=== PATIENT | male | born 2000 | race Caucasian/White ===

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

== ENCOUNTER 2019-06-02 13:14 | Outpatient (CLI) | payer OTHER ==
[~2019-06-02 13:14] MED LIST: EPINEPHrine 1 MG/ML AMP ONE; Gadobenate Dimeglumine 529 MG/1 ML (20ML VIAL) ONE; Iopamidol 300 61% 50 ML VIAL FS ONE; Lidocaine 1% PF 10 ML AMP ONE
--- NOTE | 2019-06-02 14:54 | RAD ---
Left elbow arthrogram INDICATION: Concern for ulnar collateral ligament injury of the left elbow TECHNIQUE: Informed consent was obtained. Preprocedure appeals examiner images were performed of the left elbow. The patient was placed prone on the fluoroscopic table. Site overlying the lateral aspect of the left elbow joint was prepped and draped in the usual sterile fashion. Buffered 1% lidocaine was a min ister localized tenderness tissues. Under fluoroscopic guidance, a 25-gauge needle was guided down into the radiocapitellar joint. There is administration proximal 3.5 cc of a dilute gadolinium soluti on. The needle was removed. The site was then cleansed and bandage. The patient tolerated the injection without difficulty. FINDINGS: The left elbow appears radiographically normal. No acute osseous abnormality is evident. Total fluoroscopic time was 0.8 minutes. Total exposure was 7.3 mcg/sq m. IMPRESSION: Successful left elbow arthrogram
--- NOTE | 2019-06-02 15:55 | MRI ---
EXAM: LEFT ELBOW MRI POST ARTHROGRAM CONTRAST: 06/02/19 HISTORY: Tear of the ulnar collateral ligament. FINDINGS: Multiplanar and multisequence MRI examination of the left elbow is performed. Gadolinium arthrogram c ontrast is noted intra-articularly. There is a tiny thin sliver of contrast density at the undersurfa ce of the anterior band of the UCL at the level of the sublime tubercle. Probably a very tiny partial thickness undersurface tear versus a prominent sulcus. The remainder of the UCL appears intact. Late ral collateral ligament structures appear intact. Intact lateral ulnar collateral ligament. No eviden ce for abnormal marrow signal or osteochondral defect. IMPRESSION: Tiny focus of contrast density at the undersurface of the anterior band of the UCL - sublime tubercle insertion. Possibly a small partial thickness undersurface tear versus a prominent sulcus. No evid ence for other significant acute internal derangement. POS: [facility]
== END 2019-06-02 13:15 | disposition home or self-care (01) ==
LOC: RAD 13:14
PROVIDERS: ATTEND Orthopaedic Surgery Sports Medicine
DX: S53.442A Ulnar collateral ligament sprain of left elbow, initial encounter (principal)
CPT/HCPCS: 24220; A9577; J0171; J2001; J7050; Q9967